=== PATIENT | female | born 1975 | race Caucasian/White ===

== ENCOUNTER → 2018-03-07 03:36 | Outpatient (CLI) | payer MEDICAID, SELFPAY ==
[2018-03-07 11:23] LABS: Glucose,1 Hr (Glucola) 125 mg/dL (80-140)
[2018-03-07 11:32] LABS: Abs Immature Grans 0.04 k/cumm (0.0-0.09); Absolute Basophil Count 0.02 k/cumm (0.0-0.2); Absolute Eosinophil Count 0.08 k/cumm (0.0-0.7); Absolute Lymphocyte Count 1.61 k/cumm (1.2-3.4); Absolute Monocyte Count 0.55 k/cumm (0.11-0.7); Absolute Neutrophil Count 6.98 k/cumm (1.2-6.7); Basophils % 0.2; Eosinophils % 0.9; HCT 32.5 % (36.0-46.0); HGB 11.3 g/dL (12.0-15.5); Immature Grans % 0.4; Lymphocytes % 17.3; Mean Corp. HGB Concentration 34.8 g/dL (32.0-36.0); Mean Corpuscular Hemoglobin 31.9 pg (27.0-33.0); Mean Corpuscular Volume 91.8 fL (80-95); Mean Platelet Volume 9.7 fL (8.0-11.0); Monocytes % 5.9; Neutrophils % 75.3; Platelet Count 287 x1000/uL (130-400); RBC 3.54 m/cumm (4.00-5.20); RBC Distribution Width 12.7 % (11.7-14.6); White Blood Cell Count 9.28 k/cumm (4.4-10.8)
== END ==
PROVIDERS: Visit Provider Obstetrics & Gynecology
DX: O09.523 Supervision of elderly multigravida, third trimester (principal)
CPT/HCPCS: 36415; 82950; 85025

== ENCOUNTER 2018-12-20 07:10 | Emergency (ER) | payer MEDICAID, SELFPAY ==
[2018-12-20 07:13] VITALS: BP 141/84; PULSE 92; RESP 14; TEMP 36.5; O2SAT 99
--- NOTE | 2018-12-20 07:26 | ED.GENADUL_ITS ---
Discharge Plan Disposition Patient Disposition: HOME Condition: Stable Discharge Details Chief Complaint: Nk/Back Pain Clinical Impression: Lumbar strain Primary Care Provider: None,None ED Provider: Addy Sinclair Home Meds and New Rx's Prescriptions: New cyclobenzaprine 10 mg tablet 10 mg PO TID PRN (Reason: muscle spasm) Qty: 30 RF: 0 Continued Prenatabs Rx 1 EACH tablet 1 ea PO DAILY RF: 0 methadone 10 MG/5 ML solution 30 mg PO BID Qty: 2 RF: 0 Discharge Instructions Instructions: Low Back Strain (ED) Additional Instructions: you can take 1000mg tylenol and 600mg ibuprofen every 6 hours for pain as needed. If you eed additional pain relief take the flexeril, do not drink alcohol or operate heavy machinery if you take this medicine If you have new symptoms such as fevers, difficulty urinating or weakness return to the emergency department Stand Alone Forms: Physical Therapy Referral Medical Decision Making 43 yo female who denies chronic medical problems, is on methadone but denies any drug use comes in with lower back pain since tuesday. She recently started working lifting heavy objects. Denies any falls but does a lot of bending at work and also has a child she picks up frequently. She denies urinary retnetion, difficulty urinating or issues with bowel movements, no fevers, no weakness. on exam she has pain throughout the lumbar region without significant abnormalities on exam. She has no abdominal tenderness. She has no saddle anesthesia, has 5/5 strength in the lower extremities so doubt cauda equina and denies ivdu and no fevers or other infectious symptoms so doubt sea. Normal distal pulses and so doubt dissection. I suspect lumbar strain vs muscle spasm, less likely disc herniation. Will check hcg and if negative d/c with pt referral and return precautions given Differential Diagnosis muscle spasm, lumbar strain HPI General Mode of arrival: ambulatory . Date/Time Provider Initiated Documentation: 12/20/18 07:12 . Limitations to Documentation: no limitations . Information obtained by: patient . History of Present Illness 43 year old F presents to the emergency department with the chief complaint of lower back pain, described as moderate, Quality is described as aching, and is localized to the back. Patient reports no radiation. Patient started experiencing this day(s) (2) and it has been constant. No relieving factors improve symptom(s), No exacerbating factors reported . Patient notes no other symptoms.. Patient did receive the following treatments prior to arrival, NSAID Related Data Home Medications Medication Instructions Recorded Confirmed Prenatabs Rx 1 ea PO DAILY 01/14/15 12/20/18 methadone 30 mg PO BID #2 ml 06/03/15 12/20/18 cyclobenzaprine 10 mg PO TID PRN #30 tab 12/20/18 Previous Rx's Medication Instructions Recorded cyclobenzaprine 10 mg PO TID PRN #30 tab 12/20/18 Allergies Allergy/AdvReac Type Severity Reaction Status Date / Time Sulfa (Sulfonamide Allergy Severe anaphlaxsis Unverified 12/20/18 07:18 Antibiotics) Penicillins Allergy Intermediate Swelling, Unverified 12/20/18 07:18 redness erythromycin base AdvReac Intermediate Nausea Unverified 12/20/18 07:18 General Stated Complaint: Nk/Back Pain SELINA: 3 Review of Systems Review of Systems All systems reviewed & are unremarkable except as noted in HPI and below Constitutional Denies chills, Denies fever(s) and Denies weakness ENT Denies change in voice Cardiovascular Denies chest pain and Denies dyspnea Respiratory Denies cough and Denies dyspnea Gastrointestinal Denies abdominal pain, Denies nausea and Denies vomiting Integumentary/Breasts Denies rash Neurologic Denies weakness PFSH Medical History Methadone maintenance therapy patient Social History Smoking/Tobacco Use Status: Former Tobacco Use Alcohol Intake: current Alcohol Intake frequency: a few times a month Drug use: Never Substance use type: does not use Do you feel safe at home: Yes Do you feel safe in your relationship?: Yes Exam Const General: no acute distress Orientation: alert HENMT Head: normal to inspection Ears: external ears normal General nose exam: external nose normal Mouth: moist mucous membranes Eyes General: appearance normal, both eyes and all related structures Neck Neck: normal visual inspection Resp Effort & Inspection: normal respiratory effort and able to speak in complete sentences Cardio Rate: regular rate Back/Spine/Pelvis Back: no CVA tenderness Skin General skin exam: no rashes or lesions noted Neuro General: alert and oriented x3 Extrem General: normal to inspection Psych Mental Status: mental status grossly normal Course Vital Signs Temperature 36.5 C 12/20/18 07:13 Pulse 92 H 12/20/18 07:13 Respiratory Rate 14 12/20/18 07:13 Blood Pressure 141/84 H 12/20/18 07:13 Pulse Oximetry 99 12/20/18 07:13 Temperature 36.5 C 12/20/18 07:13 Temperature Source Temporal Artery Scan 12/20/18 07:13 Pulse 92 H 12/20/18 07:13 Respiratory Rate 14 12/20/18 07:13 Respiratory Effort Non-Labored 12/20/18 07:13 Blood Pressure 141/84 H 12/20/18 07:13 Blood Pressure Position Sitting 12/20/18 07:13 Pulse Oximetry 99 12/20/18 07:13 Oxygen Delivery Method Room Air 12/20/18 07:13 Oxygen Flow Rate 0 12/20/18 07:13 Pain Level 10 12/20/18 07:17
[2018-12-20 08:03] VITALS: BP 141/84; PULSE 92; RESP 14; TEMP 36.5; O2SAT 99
== END 2018-12-20 08:04 | disposition home or self-care (01) ==
LOC: ER 07:55
PROVIDERS: Emergency Provider Emergency Medicine
DX: S39.012A Strain of muscle, fascia and tendon of lower back, initial encounter (principal); X50.3XXA Overexertion from repetitive movements, initial encounter; Z79.891 Long term (current) use of opiate analgesic
CPT/HCPCS: 81025; 99283

== ENCOUNTER 2023-07-29 19:03 | Outpatient (REF) | payer MEDICAID, SELFPAY | END 2023-07-29 19:04 | disposition home or self-care (01) | LOC: LBN 19:03 | PROVIDERS: Visit Provider Physician Assistant Medical | DX: J02.9 Acute pharyngitis, unspecified (principal) | CPT/HCPCS: 87070 ==